=== PATIENT | male | born 1995 | race Caucasian/White ===

== ENCOUNTER 2016-06-19 22:51 | Emergency (ER) | payer OTHER ==
[~2016-06-19] VITALS: Ht 193 cm; Wt 78.0 kg
[2016-06-19 22:54] VITALS: BP 143/77; PULSE 82; RESP 16; TEMP 98.9; O2SAT 100
[2016-06-20 01:03] LABS: AUTOMATED NEUTROPHIL # 5.9 TH/MM3 (1.8-7.7); BASOPHIL % 0.4 % (0.0-2.0); EOSINOPHIL # 0.2 TH/MM3 (0-0.4); EOSINOPHIL % 2.7 % (0.0-4.0); HEMATOCRIT 45.8 % (39.0-51.0); HEMO FLAGS DIFF FINAL; LYMPH % 21.1 % (9.0-44.0); LYMPHOCYTE # 1.8 TH/MM3 (1.0-4.8); MEAN CELL VOLUME 91.5 FL (80.0-100.0); MEAN CORPUSCULAR HEMOGLOBIN 30.3 PG (27.0-34.0); MEAN CORPUSCULAR HGB CONC 33.1 % (32.0-36.0); MONO % 7.6 % (0.0-8.0); NEUT % 68.2 % (16.0-70.0); PLATELET COUNT 184 TH/MM3 (150-450); RED BLOOD COUNT 5.01 MIL/MM3 (4.50-5.90); RED CELL DISTRIBUTION WIDTH 12.8 % (11.6-17.2); WHITE BLOOD COUNT 8.6 TH/MM3 (4.0-11.0)
[2016-06-20 01:05] VITALS: RESP 16
[2016-06-20 01:11] LABS: BLOOD, URINE NEG (NEG); COMMENT (UR) CULT NOT INDICATED; CULTURE IF INDICATED CULT NOT INDICATED; GLUCOSE,URINE NEG (NEG); KETONE, URINE NEG (NEG); NITRITE,URINE NEG (NEG); URINE COLOR YELLOW (YELLW/STRAW)
[2016-06-20 01:22] LABS: ANION GAP 5 MEQ/L (5-15); BICARBONATE 32.2 MEQ/L (21.0-32.0); BLOOD UREA NITROGEN 13 MG/DL (7-18); CHLORIDE 106 MEQ/L (98-107); GLOMERULAR FILTRATION RATE 89 ML/MIN (>89); POTASSIUM 3.8 MEQ/L (3.5-5.1); SODIUM (NA) 143 MEQ/L (136-145)
[2016-06-20 01:26] LABS: CREATINE KINASE 93 U/L (39-308)
[2016-06-20] MEDS ORDERED: MORPHINE SULFATE 4 MG/ML INJ IV PUSH ONE (01:30)
[2016-06-20] MEDS ORDERED: ONDANSETRON HCL 4 MG/2 ML VIAL IVP ONE (01:30)
[2016-06-20] MEDS ORDERED: FAMOTIDINE 20 MG/2 ML VIAL IV PUSH ONE (01:30)
[2016-06-20] MEDS ORDERED: ALUMINUM/MAGNESIUM/SIMETH 30 ML CUP PO ONE (01:30)
[2016-06-20] MEDS ORDERED: SODIUM CHLOR 0.9% 1000 ML INJ 1,000 ML IV SCH (01:30)
[2016-06-20] MEDS ORDERED: LIDOCAINE VISCOUS 2% SOLN 15 ML UDC PO ONE (01:30)
--- NOTE | 2016-06-20 01:46 | RADRPT ---
EXAM DATE/TIME: 06/20/2016 01:20 [place] COMPARISON: No previous studies available for comparison. INDICATIONS : Mid chest pain. MEDICAL HISTORY : Spontaneous pneumothorax SURGICAL HISTORY : None. ENCOUNTER: Initial ACUITY: 1 day PAIN SCORE: 7/10 LOCATION: Bilateral middle chest FINDINGS: PA and lateral views of the chest demonstrate the lungs to be symmetrically aerated without evidence of mass, infiltrate or effusion. The cardiomediastinal contours are unremarkable. Osseous structure s are intact. CONCLUSION: Normal examination. Henry Iverson Jr., MD on June 20, 2016 at 1:44 Board Certified Radiologist. This report was verified electronically.
[2016-06-20 02:03] LABS: INDIRECT BILIRUBIN 0.3 MG/DL (0.0-0.8); TOTAL BILIRUBIN ADULT 0.4 MG/DL (0.2-1.0)
[2016-06-20 02:32] VITALS: BP 141/72; PULSE 78; RESP 16; O2SAT 96
[2016-06-20] MEDS ORDERED: ZANT150T2 PO (03:08)
--- NOTE | 2016-06-20 03:08 | PD ---
HPI Chief Complaint: Chest Pain Time Seen by Provider: 00:45 Travel History International Travel<30 days: No Contact w/Intl Traveler<30days: No Traveled to known affect area: No History of Present Illness HPI Patient is a 21-year-old male who comes in complaining of epigastric pain. He says the pain came on last night, he felt a little better than it came on again today. He took some Tylenol and felt a little better, but the pain came back. He says he has a history of 2 pneumothoraces in the past, but this does not feel like the same pain. He denies any shortness of breath. He says the pain radiates a little to the right upper quadrant of his abdomen. He denies fever or chills. He denies nausea or vomiting. PFS Past Medical History Respiratory: Yes (SPON. PNEUMO X 2) Immunizations Current: Yes Tetanus Vaccination: Unknown Influenza Vaccination: No Social History Alcohol Use: No Tobacco Use: No Substance Use: No Allergies-Medications (Allergen,Severity, Reaction): Coded Allergies: Penicillin (Verified Allergy, Mild, HIVES, 06/20/16) Reported Meds & Prescriptions Reported Meds & Active Scripts Active Zantac (Ranitidine HCl) 150 Mg Tab 150 Mg PO BID Review of Systems Except as stated in HPI: all other systems reviewed are Neg General / Constitutional: No: Fever, Chills HENT: No: Headaches, Lightheadedness Cardiovascular: No: Chest Pain or Discomfort Respiratory: No: Shortness of Breath Gastrointestinal: Positive: Abdominal Pain, No: Nausea, Vomiting Musculoskeletal: No: Edema, Pain Skin: No Rash, No Change in Pigmentation Physical Exam Narrative GENERAL: Awake and alert, in no acute distress. SKIN: Focused skin assessment warm/dry. HEAD: Atraumatic. Normocephalic. EYES: Pupils equal and round. No scleral icterus. ENT: Mucous membranes pink and moist. NECK: Trachea midline. No JVD. CARDIOVASCULAR: Regular rate and rhythm. No murmur appreciated. RESPIRATORY: No accessory muscle use. Clear to auscultation. Breath sounds equal bilaterally. GASTROINTESTINAL: Abdomen soft, nondistended. Tender to palpation of the midepigastric area. No rebound or guarding. MUSCULOSKELETAL: No obvious deformities. No clubbing. No cyanosis. No edema. NEUROLOGICAL: Awake and alert. No obvious cranial nerve deficits. Motor grossly within normal limits. Normal speech. PSYCHIATRIC: Appropriate mood and affect; insight and judgment normal. Data Data Last Documented VS Vital Signs Date Time Temp Pulse Resp B/P Pulse Ox O2 Delivery O2 Flow Rate FiO2 06/20/16 02:32 78 16 141/72 96 Room Air 06/19/16 22:54 98.9 Orders Chest, Pa & Lat (06/20/16 ) Electrocardiogram (06/20/16 ) Complete Blood Count With Diff (06/20/16 00:48) Basic Metabolic Panel (Bmp) (06/20/16 00:48) Ckmb (Isoenzyme) Profile (06/20/16 00:48) Troponin I (06/20/16 00:48) Iv Access Insert/Monitor (06/20/16 00:48) Ecg Monitoring (06/20/16 00:48) Oxygen Administration (06/20/16 00:48) Oximetry (06/20/16 00:48) Urinalysis - C+S If Indicated (06/20/16 00:48) Hepatic Functional Panel (06/20/16 01:30) Lipase (06/20/16 01:30) Morphine Inj (Morphine Inj) (06/20/16 01:30) Ondansetron Inj (Zofran Inj) (06/20/16 01:30) Sodium Chlor 0.9% 1000 Ml Inj (Ns 1000 M (06/20/16 01:30) Famotidine Inj (Pepcid Inj) (06/20/16 01:30) Al-Mag Hy-Si 40-40-4 Mg/Ml Liq (Mag-Al P (06/20/16 01:30) Lidocaine 2% Viscous (Xylocaine 2% Visco (06/20/16 01:30) Labs Laboratory Tests Test 06/20/16 00:55 White Blood Count 8.6 TH/MM3 Red Blood Count 5.01 MIL/MM3 Hemoglobin 15.2 GM/DL Hematocrit 45.8 % Mean Corpuscular Volume 91.5 FL Mean Corpuscular Hemoglobin 30.3 PG Mean Corpuscular Hemoglobin 33.1 % Concent Red Cell Distribution Width 12.8 % Platelet Count 184 TH/MM3 Mean Platelet Volume 7.7 FL Neutrophils (%) (Auto) 68.2 % Lymphocytes (%) (Auto) 21.1 % Monocytes (%) (Auto) 7.6 % Eosinophils (%) (Auto) 2.7 % Basophils (%) (Auto) 0.4 % Neutrophils # (Auto) 5.9 TH/MM3 Lymphocytes # (Auto) 1.8 TH/MM3 Monocytes # (Auto) 0.7 TH/MM3 Eosinophils # (Auto) 0.2 TH/MM3 Basophils # (Auto) 0.0 TH/MM3 CBC Comment DIFF FINAL Differential Comment Urine Color YELLOW Urine Turbidity CLOUDY Urine pH 7.0 Urine Specific [place] 1.012 Urine Protein NEG mg/dL Urine Glucose (UA) NEG mg/dL Urine Ketones NEG mg/dL Urine Occult Blood NEG Urine Nitrite NEG Urine Bilirubin NEG Urine Urobilinogen LESS THAN 2.0 MG/DL Urine Leukocyte Esterase NEG Urine RBC 4 /hpf Urine Amorphous Sediment MOD Microscopic Urinalysis Comment CULT NOT INDICATED Sodium Level 143 MEQ/L Potassium Level 3.8 MEQ/L Chloride Level 106 MEQ/L Carbon Dioxide Level 32.2 MEQ/L Anion Gap 5 MEQ/L Blood Urea Nitrogen 13 MG/DL Creatinine 1.05 MG/DL Estimat Glomerular Filtration 89 ML/MIN Rate Random Glucose 59 MG/DL Calcium Level 9.0 MG/DL Total Bilirubin 0.4 MG/DL Direct Bilirubin 0.1 MG/DL Indirect Bilirubin 0.3 MG/DL Aspartate Amino Transf 17 U/L (AST/SGOT) Alanine Aminotransferase 25 U/L (ALT/SGPT) Alkaline Phosphatase 73 U/L Total Creatine Kinase 93 U/L Troponin I LESS THAN 0.02 NG/ML Total Protein 7.0 GM/DL Albumin 3.8 GM/DL Lipase 111 U/L [facility] Medical Decision Making Medical Screen Exam Complete: Yes Emergency Medical Condition: Yes Interpretation(s) ECG shows sinus bradycardia at 58, early re-pole. Differential Diagnosis Pneumonia versus pneumothorax versus pancreatitis versus GERD versus cholecystitis Narrative Course Patient is a 21-year-old male who comes in complaining of epigastric abdominal pain. Exam shows tenderness to the mid epigastric area. IV status, labs sent. Labs show no acute abnormalities. Patient given GI cocktail. Chest x-ray performed shows no acute abnormalities. Patient reports feeling much better after GI cocktail, his pain is gone. Will be discharged with prescription for Zantac. Advised to avoid spicy foods. Advised follow-up with his doctor. Advised to return to the ED as needed for any worsening symptoms. Diagnosis Primary Impression: Abdominal pain Qualified Code: R10.13 - Epigastric pain Patient Instructions: Gastroesophageal Reflux Disease (ED), General Instructions Additional Instructions: Follow up with a primary care doctor. Avoid spicy foods, alcohol, caffeine, cigarettes. Take Zantac daily. Return to the ED as needed for any worsening symptoms. Scripts Ranitidine (Zantac)150 Mg [id number] Mg PO BID #20 TAB Ref 0 Prov:Joann Camacho MD 06/20/16 Disposition: 01 DISCHARGE HOME Condition: Stable Joann Camacho MD Jun 20, 2016 03:08
--- NOTE | 2016-06-20 12:50 | EKG ---
Date Performed: 06/20/2016 Time Performed: 00:43:42 PTAGE: 21 years EKG: SINUS BRADYCARDIA ST ELEVATION, PROBABLY EARLY REPOLARIZATION BORDERLINE ECG NO PREVIOUS TRACING DOCTOR: Morgan Ramos Interpretating Date/Time 06/20/2016 12:48:37
== END 2016-06-20 03:24 | disposition home or self-care (01) ==
LOC: NEPE 22:51
DX: R10.13 Epigastric pain (principal); R00.1 Bradycardia, unspecified
CPT/HCPCS: 71020; 80048; 80076; 81001; 82550; 83690; 84484; 85025; 93005; 96361; 96374; 96375; 99284; J2405; J7030